=== PATIENT | male | born 1955 | race African-American/Black ===

== ENCOUNTER 2019-03-07 02:34 | Inpatient (IN) | payer SELFPAY ==
[~2019-03-07] VITALS: Ht 180.3 cm; Wt 79.4 kg
--- NOTE | 2019-03-07 02:40 | NUR ---
ED Nurse Note: PT BIBA [id number] FROM APT C/C ANXIETY, per EMS report pt's brother called 911 due to pt's behavior, pt states he was fighting with his family and states he got tired of it. pt denies SI/HI nor hallucination at this time. noted sinus tach on chief deputy, vss, resp even and unlabored on RA, will cont monitor.
--- NOTE | 2019-03-07 02:50 | NUR ---
HAND-OFF: Report given to Neema.
--- NOTE | 2019-03-07 02:52 | Emergency Room Report ---
History of Present Illness General Chief Complaint: Behavioral Complaint Source: Patient, EMS Present Illness HPI EMS was called by patient's brother. Apparently he is been more aggressive towards his mother. Is a history of schizoaffective disorder bipolar type. Unclear whether he is been taking his medications or doing drugs. The patient is very disorganized thoughts and cannot answer most questions. Sometimes he says he thinks about committing suicide but is unable to articulate a plan. The patient denies any pain in his body. Denies any cough, nausea, vomiting or diarrhea. However the history is suspect. Allergies: Coded Allergies: No Known Allergies (Unverified , 03/07/19) Patient History Limited by: medical condition - Disorganized thought Past Medical History: see triage record Social History: Denies: smoking - former Social History Narrative Lives with his family Reviewed Nursing Documentation: PMH: Agreed; PSxH: Agreed Nursing Documentation-PMH Past Medical History: No History, Except For Review of Systems All Other Systems: limited Physical Exam Vital Signs Date Time Temp Pulse Resp B/P (MAP) Pulse Ox O2 Delivery O2 Flow Rate FiO2 03/07/19 02:33 98.2 140 16 148/53 (84) 99 Room Air Sp02 EP Interpretation: reviewed, normal General Appearance: no apparent distress, alert, other - Disheveled, Chronically Ill Head: normocephalic, atraumatic Eyes: bilateral eye PERRL, bilateral eye Scleral Injection ENT: moist mucus membranes - Poor dentition Neck: supple Respiratory: lungs clear, normal breath sounds Cardiovascular #1: regular rate, rhythm Cardiovascular #2: 2+ radial (R) Gastrointestinal: normal inspection, non tender, soft Genitourinary: no CVA tenderness Musculoskeletal: back normal Neurologic: motor strength/tone normal, DTRs symmetric, sensory intact, normal gait, oriented - X1 Psychiatric: other - Is organized thought Suicide Risk Assessment: Suicidal Ideation: Yes Had intent to initiate attempt: No Pt's plan for suicide attempt: No Has means to complete attempt: No Skin: well hydrated, other - Disheveled Medical Decision Making Diagnostic Impression: Primary Impression: Bipolar disorder Qualified Codes: F31.64 - Bipolar disorder, current episode mixed, severe, with psychotic features Additional Impression: Hypokalemia ER Course Patient with a history of schizoaffective bipolar disorder presents with increased agitation. Differential includes exacerbation of underlying psychiatric illness, medical noncompliance, drug ingestion, electrolyte imbalance amongst others. Patient will be evaluated with EKG and labs. The patient will be treated with Haldol, Ativan and Benadryl. EKG without injury. CXR no infiltrates. Labs remarkable for low potassium. K low. Potassium ordered. Patient compliant and calm after meds. Admit observation for psych and low potassium. Laboratory Tests Test 03/07/19 02:50 03/07/19 04:24 White Blood Count 7.5 K/UL (4.8-10.8) Red Blood Count 4.87 M/UL (4.70-6.10) Hemoglobin 16.1 G/DL (14.2-18.0) Hematocrit 47.8 % (42.0-52.0) Mean Corpuscular Volume 98 FL (80-99) Mean Corpuscular Hemoglobin 33.0 PG (27.0-31.0) H Mean Corpuscular Hemoglobin Concent 33.6 G/DL (32.0-36.0) Red Cell Distribution Width 10.5 % (11.6-14.8) L Platelet Count 218 K/UL (150-450) Mean Platelet Volume 5.2 FL (6.5-10.1) L Neutrophils (%) (Auto) 78.2 % (45.0-75.0) H Lymphocytes (%) (Auto) 9.5 % (20.0-45.0) L Monocytes (%) (Auto) 9.8 % (1.0-10.0) Eosinophils (%) (Auto) 1.0 % (0.0-3.0) Basophils (%) (Auto) 1.5 % (0.0-2.0) Sodium Level 143 MMOL/L (136-145) Potassium Level 2.7 MMOL/L (3.5-5.1) *L Chloride Level 105 MMOL/L (98-107) Carbon Dioxide Level 27 MMOL/L (21-32) Anion Gap 12 mmol/L (5-15) Blood Urea Nitrogen 28 mg/dL (7-18) H Creatinine 1.2 MG/DL (0.55-1.30) Estimate Glomerular Filtration Rate > 60 mL/min (>60) Glucose Level 132 MG/DL (74-106) H Calcium Level 9.3 MG/DL (8.5-10.1) Total Bilirubin 1.1 MG/DL (0.2-1.0) H Direct Bilirubin 0.2 MG/DL (0.0-0.3) Aspartate Amino Transferase (AST) 89 U/L (15-37) H Alanine Aminotransferase (ALT) 26 U/L (12-78) Alkaline Phosphatase 113 U/L (46-116) Troponin I 0.005 ng/mL (0.000-0.056) Total Protein 8.9 G/DL (6.4-8.2) H Albumin 4.7 G/DL (3.4-5.0) Globulin 4.2 g/dL Albumin/Globulin Ratio 1.1 (1.0-2.7) Thyroid Stimulating Hormone (TSH) 1.196 uiU/mL (0.358-3.740) Salicylates Level 0.3 ug/mL (2.8-20) L Acetaminophen Level < 2 MCG/ML (10-30) L Serum Alcohol < 3 mg/dL Urine Color Yellow Urine Appearance Clear Urine pH 5 (4.5-8.0) Urine Specific [place] 1.015 (1.005-1.035) Urine Protein 3+ (NEGATIVE) H Urine Glucose (UA) Negative (NEGATIVE) Urine Ketones 1+ (NEGATIVE) H Urine Blood 5+ (NEGATIVE) H Urine Nitrite Negative (NEGATIVE) Urine Bilirubin Negative (NEGATIVE) Urine Urobilinogen 1 MG/DL (0.0-1.0) H Urine Leukocyte Esterase 1+ (NEGATIVE) H Urine RBC 10-15 /HPF (0 - 0) H Urine WBC 2-4 /HPF (0 - 0) Urine Squamous Epithelial Cells Occasional /LPF Urine Bacteria Few /HPF (NONE) Urine Hyaline Casts 0-2 /LPF (NONE) H Urine Fine Granular Casts 0-2 /LPF (NONE) H Urine Mucus Few /LPF (NONE/OCC) H Urine Opiates Screen Negative (NEGATIVE) Urine Barbiturates Screen Negative (NEGATIVE) Phencyclidine (PCP) Screen Negative (NEGATIVE) Urine Amphetamines Screen Negative (NEGATIVE) Urine Benzodiazepines Screen Negative (NEGATIVE) Urine Cocaine Screen Negative (NEGATIVE) Urine Marijuana (THC) Screen Negative (NEGATIVE) EKG Diagnostic Results Rate: tachycardiac Rhythm: NSR ST Segments: no acute changes Rhythm Strip Diag. Results EP Interpretation: yes Rhythm: no PVC's, no ectopy, other - Sinus tachycardia 101 Chest X-Ray Diagnostic Results Chest X-Ray Diagnostic Results : Chest X-Ray Ordered: Yes # of Views/Limited/Complete: 1 View Indication: Other EP Interpretation: Yes Interpretation: no pneumothorax, other - poor inspiration, no infilttrates Impression: Other Electronically Signed by: Deshawn Jones MD Last Vital Signs Date Time Temp Pulse Resp B/P (MAP) Pulse Ox O2 Delivery O2 Flow Rate FiO2 03/07/19 07:42 98.2 96 16 153/87 97 Room Air Status: improved Disposition: ADMITTED INPATIENT Condition: Serious Deshawn Jones MD Mar 07, 2019 02:52
[2019-03-07] MEDS ORDERED: DiphenhydrAMINE 50mg/ml Inj ONE (02:56)
[2019-03-07] MEDS ORDERED: Haloperidol 5mg/ml Inj ONE (02:57)
[2019-03-07] MEDS ORDERED: DiphenhydrAMINE 50mg/ml Inj IVP ONE (03:00)
[2019-03-07] MEDS ORDERED: Haloperidol 5mg/ml Inj IM ONE (03:00)
[2019-03-07] MEDS ORDERED: LORazepam Inj 2mg/ml 1ml IV ONE (03:00)
[2019-03-07 03:25] LABS: BASOPHILS % (AUTO) 1.5 % (0.0-2.0); HEMATOCRIT 47.8 % (42.0-52.0); HEMOGLOBIN 16.1 G/DL (14.2-18.0); LYMPHOCYTES % (AUTO) 9.5 % (20.0-45.0); MEAN CORPUSCULAR VOLUME 98 FL (80-99); MONOCYTES % (AUTO) 9.8 % (1.0-10.0); NEUTROPHILS % (AUTO) 78.2 % (45.0-75.0); PLATELET COUNT 218 K/UL (150-450); RED BLOOD COUNT 4.87 M/UL (4.70-6.10); RED CELL DISTRIBUTION WIDTH 10.5 % (11.6-14.8); WHITE BLOOD COUNT 7.5 K/UL (4.8-10.8)
[2019-03-07 03:46] LABS: ALANINE AMINOTRANSFERASE 26 U/L (12-78); ALBUMIN 4.7 G/DL (3.4-5.0); ALBUMIN/GLOBULIN RATIO 1.1 (1.0-2.7); ALKALINE PHOSPHATASE 113 U/L (46-116); ANION GAP 12 mmol/L (5-15); ASPARTATE AMINO TRANSFERASE 89 U/L (15-37); BILIRUBIN,TOTAL 1.1 MG/DL (0.2-1.0); BLOOD UREA NITROGEN 28 mg/dL (7-18); CALCIUM 9.3 MG/DL (8.5-10.1); CARBON DIOXIDE 27 MMOL/L (21-32); CHLORIDE 105 MMOL/L (98-107); CREATININE 1.2 MG/DL (0.55-1.30); SODIUM 143 MMOL/L (136-145)
--- NOTE | 2019-03-07 03:50 | NUR ---
ED Nurse Note: Patient awake and alert, able to converse. vital signs stable will contiue to monitor.
[2019-03-07 03:57] LABS: POTASSIUM 2.7 MMOL/L (3.5-5.1)
[2019-03-07 04:11] LABS: BILIRUBIN,DIRECT 0.2 MG/DL (0.0-0.3)
[2019-03-07 04:34] VITALS: BP 148/53
[2019-03-07 04:51] LABS: APPEARANCE,URINE CLEAR; BILIRUBIN, URINE NEGATIVE (NEGATIVE); GLUCOSE, URINE (UA) NEGATIVE (NEGATIVE); KETONES,URINE 1+ (NEGATIVE); LEUKOCYTE ESTERASE ,URINE 1+ (NEGATIVE); NITRITE,URINE NEGATIVE (NEGATIVE); PH,URINE 5 (4.5-8.0); PROTEIN,URINE 3+ (NEGATIVE); UROBILINOGEN,URINE 1 MG/DL (0.0-1.0)
[2019-03-07 04:54] LABS: COLOR,URINE YELLOW
--- NOTE | 2019-03-07 04:55 | NUR ---
ED Nurse Note: Patient tolerating potassium replacement well, will continue to monitor.
--- NOTE | 2019-03-07 05:24 | Diagnostic Imaging Report ---
EXAM: XR Chest, 1 View CLINICAL HISTORY: ALOC TECHNIQUE: Frontal view of the chest. COMPARISON: No relevant prior studies available. FINDINGS: Lungs: Low lung volumes and nonspecific left lung base opacity which may reflect atelectasis. Consolidation not excluded. Fullness of the central pulmonary venous structures may be secondary to low lung volumes and bronchovascular compression. Mild central vascular congestion not excluded. Pleural space: Blunting of the costophrenic angles could be secondary to small pleural effusions or hypoventilatory imaging. No pneumothorax. Heart: Unremarkable. No cardiomegaly. Mediastinum: Unremarkable. Bones/joints: Unremarkable. IMPRESSION: 1. Low lung volumes and nonspecific left lung base opacity which may reflect atelectasis. Consolidation not excluded. 2. Fullness of the central pulmonary venous structures may be secondary to low lung volumes and bronchovascular compression. Mild central vascular congestion not excluded. 3. Blunting of the costophrenic angles could be secondary to small pleural effusions or hypoventilatory imaging. 4. No pneumothorax.
--- NOTE | 2019-03-07 06:00 | NUR ---
nformED Nurse Note: Patient resting comfortably, A&Ox4, able to confirm address. Informed of hold,patient cooperative and compliant. will continue to monitor.
[2019-03-07 07:00] VITALS: BP 141/89
--- NOTE | 2019-03-07 07:07 | NUR ---
ED Nurse Note: Vital signs stable and documented. PAtient resting comfortably.
--- NOTE | 2019-03-07 07:15 | NUR ---
ED Nurse Note: Patient belongings in locker #3.
--- NOTE | 2019-03-07 07:16 | NUR ---
HAND-OFF: Report given to Sasha QUINTANA.
--- NOTE | 2019-03-07 07:17 | NUR ---
ED Nurse Note: Received patient in bed, patient is alert awake x3, no sign of acute distress, vss. IV site on the left hand intact, patent.
[2019-03-07 07:42] VITALS: BP 153/87
[2019-03-07] MEDS ORDERED: UNOBMED (07:42)
[2019-03-07] MEDS ORDERED: LORazepam Inj 2mg/ml 1ml IV PRN (08:00)
[2019-03-07] MEDS ORDERED: Morphine Sulfate 2mg/ml Inj(IV/IM USE ONLY) IVP PRN (08:00)
--- NOTE | 2019-03-07 08:58 | NUR ---
ED Nurse Note: Called [facility] and spoke with Ashley Nowak RN will be the receiving nurse, she is with another patient, told to call her back later.
--- NOTE | 2019-03-07 09:28 | NUR ---
ED Nurse Note: Report given to Ashley QUINTANA. ENdorsed all plan of care.
[2019-03-07] MEDS ORDERED: Dextrose 50% 25ml Syringe IV PRN (09:30)
--- NOTE | 2019-03-07 09:45 | NUR ---
NURSE NOTES: Patient admitted to room 312 bed 1,patient is alert and oriented,respirations unlabored.DR Dale here and aware of patient room number.Patient has his personal belongings.Patient ambulate to bathroom,gait is steady.
[2019-03-07 12:00] VITALS: BP 157/101
--- NOTE | 2019-03-07 12:00 | NUR ---
NURSE NOTES: Patient arrived the unit alert awake with out no distress, able to provide information stated he lives with his mother, provided address patient oriented to self, date, time, and place. patient also able to verify the current president, the city he is living, and provided his mother number CN called the number [phone] spoke to the mother and verified he lives with the mother. brother in law Mr. Mtz came and visited patient and asked the CN if he can take the patient out for smoke CN explained patient it is a smoke free facility currently patient calm and cooperative will continue to monitor.
--- NOTE | 2019-03-07 12:35 | NUR ---
NURSE NOTES: Spoke with patient mother ,patient wants to go home.Patient Mother says patient can come home,patient will need transportation,there car is in the shop.Will notify DR Dale. Patient alert calm and cooperative.
--- NOTE | 2019-03-07 14:00 | NUR ---
patient after brother in law left he insist he want to go home got dressed and tried to leave DR. Dale notified and family notified, patient anxious to leave he said he has money and he showed for CN he has a dollar bills in his pocket and able to verbalize how he can get home using public transportation RN discussed with the patient to continue the care and lunch is provided patient able to eat with out no difficulties, currently patient insisting to go home packed all his belongings and has his cloth on will continue to monitor.
--- NOTE | 2019-03-07 15:03 | NUR ---
CASE MANAGEMENT: INITIAL REVIEW 63 YO M LUIS FERNANDO FROM HOME CC: ANXIETY PMHx: BIPOLAR D/O SI:HYPOKALEMIA. BIPOLAR D/O. T 98.2 HR 140 RR 16 B/P 148/53 SATS 99% ON RA K 2.7 BUN 28 GLU 132 TBILI 1.1 AST 89 SI:BENADRYL IV X1 HALDOL IV X1 ATIVAN IV X1 KCL IV X1 PATIENT ADMITTED TO MED/SURG 03/07/2019 @ 0722 DCP: PATIENT TO BE DISCHARGED TO HOME ONCE MEDICALLY CLEARED. PLAN OF CARE: VENOUS DUPLEX Addendum: 03/09/19 at 1801 by Mey Simons CM INTERQUAL MET
--- NOTE | 2019-03-07 16:33 | NUR ---
NURSE NOTES: Patient left AMA stable condition picked up by family member. IV removed all belongings given, Dr. Dale aware and patient signed AMA.
[2019-03-07] MEDS ORDERED: Zolpidem 5mg tab ORAL PRN (21:00)
[2019-03-07] MEDS ORDERED: Miralax 17gm pkt ORAL PRN (21:00)
--- NOTE | 2019-03-09 12:30 | Discharge Summary ---
Discharge Summary Discharge Summary _ DATE OF ADMISSION: 03/07/2019 DATE OF DISCHARGE: 03/07/2019 Patient left AGAINST MEDICAL ADVICE REASON FOR ADMISSION: 63 years old male with past medical history of anxiety disorder, schizoaffective disorder bipolar type was brought by ambulance. Patient's brother called the ambulance , because apparently patient was more aggressive . Patient by himself demonstrated very disorganized thought process and was unable to answer most of the questions. It was unclear if he was taking any medication or doing drugs. Patient denied any pain. He denied cough, nausea, vomiting ,or diarrhea. Upon evaluation patient was tachycardic with heart rate of 140. No fever, stable blood pressure. Laboratory work-up revealed no leukocytosis , stable hemoglobin and hematocrit. Potassium 2.7. BUN 28, creatinine 1.2. Glucose 132. Stable bilirubin, AST 89, ALT 26. Troponin 0.005. EKG revealed sinus tachycardia , no acute ischemic changes . TSH within normal limits. Urinalysis revealed +1 ketones, +3 protein , no evidence of urinary tract infection. Urine toxicology screen was negative. Serum alcohol level less than 3, serum salicylate and Tylenol levels negative . Chest x-ray demonstrated low lung volumes and nonspecific left lung base opacity , possibly reflecting atelectasis. No pneumothorax. In emergency department patient potassium was replaced. Patient received anxiolytics and admitted for further management. HOSPITAL COURSE: Patient subsequently admitted to medical surgical floor . Supportive care provided. Patient was clsoely observed. In few hours he decided to leave AGAINST MEDICAL ADVICE. At that time patient was alert and oriented, stable mood and behavior. Patient was picked up by the family member. The risks and consequences of signing AGAINST MEDICAL ADVICE were discussed with patient in detail. Patient verbalized understanding, nevertheless signed AMA form and left. Bipolar disorder FINAL DIAGNOSES: Bipolar disorder Hypokalemia I have been assigned to dictate discharge summary for this account. I was not involved in the patient's management. Nasra Farfan NP Mar 09, 2019 12:30
== END 2019-03-07 16:33 | disposition left against medical advice (07) | DRG 885 ==
LOC: EDBD 02:34 → EMR 02:51 → 3E 07:22 → EDBEDREQ 08:51
DX: F25.0 Schizoaffective disorder, bipolar type (principal); E87.6 Hypokalemia; F41.9 Anxiety disorder, unspecified
CPT/HCPCS: 36415; 71045; 80053; 80307; 80329; 81003; 82248; 84443; 84484; 85025; 93005; 96361; 96372; 96374; 96375; 99285